=== PATIENT | male | born 2000 | race Caucasian/White ===

== ENCOUNTER 2018-11-27 21:43 | Emergency (ER) | payer BC, OTHER ==
[2018-11-27] MEDS ORDERED: NS 1,000 ML IV ONE ×3 (21:51→23:27)
[2018-11-27] MEDS ORDERED: PROMETHAZINE HCL 25 MG/ML INJ IVP ONE (21:51)
--- NOTE | 2018-11-27 22:04 | EDPHY ---
H & P Stated Complaint: THINKS HE ATE SOMETHING BAD, VOMITING ALL DAY Source: Patient Exam Limitations: No limitations - Personal History Current Tetanus/Diphtheria Vaccine: Yes Current Tetanus Diphtheria and Acellular Pertussis (TDAP): Yes - Medical/Surgical History Hx Asthma: No Hx Chronic Respiratory Disease: No Hx Diabetes: No Hx Cardiac Disease: No Hx Renal Disease: No Hx Cirrhosis: No Hx Alcoholism: No Hx HIV/AIDS: No Hx Splenectomy or Spleen Trauma: No Other PMH: DENIES - Social History Smoking Status: Never smoked Time Seen by Provider: 11/27/18 21:49 HPI/ROS: HPI: This is a 18-year-old male who presents with Chief Complaint: THINKS HE ATE SOMETHING BAD, VOMITING ALL DAY Location: GI Quality: Nausea, vomiting Duration: Since 8:00 a.m. Approximately 14 hr Signs and Symptoms: no fever, + nausea, + vomiting, no hematemesis, no blood in stool, no abdominal bloating, no diarrhea, no back pain, no urinary symptoms, no testicular/groin pain, no indigestion, no chest pain, no shortness of breath Timing: Acute, intermittent episodes Severity: Moderate Context: Patient is student at [employer] presents with sudden onset this morning around 8:00 a.m. Of nausea and vomiting approximately 10-15 times today. The last time he vomited was 20 min prior to arrival to the emergency room. Patient reports that he felt fine yesterday. Ate chicken wings from the [employer] around midnight. He was only person in his group that ate the wings. He believes that these made him sick. Denies any hematemesis, blood in stool, abdominal bloating, diarrhea, fevers. He reports that he was able to eat soup today. Denies any actual abdominal pain. He did smoke marijuana yesterday and today. He reports that he has never had nausea and vomiting from smoking marijuana in the past. Reports that he does not smoke marijuana every day. Modifying Factors: Sipping on liquids and ate soup Comment: ROS: A comprehensive 10 system review of systems is otherwise negative aside from elements mentioned in the history of present illness. MEDICAL/SURGICAL/SOCIAL HISTORY: Medical history: Generally healthy. Does not take any regular medications. Surgical history: Denies Social history: Alcohol, marijuana, tobacco use. Family history noncontributory. CONSTITUTIONAL: Extremely well-appearing adult white male, awake and alert, no obvious distress HEENT: Atraumatic and normocephalic, PERRL, EOMI. Nares patent; no rhinorrhea; no nasal mucosal edema. Tympanic membranes clear. Oropharynx clear, no exudate and moist pink mucosa. Airway patent. No lymphadenopathy. No meningismus. Cardiovascular: Normal S1/S2, regular rate, regular rhythm, without murmur rub or gallop. PULMONARY/CHEST: Symmetrical and nontender. Clear to auscultation bilaterally. Good air movement. No accessory muscle usage. ABDOMEN: Soft, nondistended, nontender, no rebound, no guarding, no peritoneal signs, no masses or organomegaly. No CVAT. EXTREMITIES: 2/2 pulses, strength 5/5, no deformities, no clubbing, no cyanosis or edema. NEUROLOGICAL: no focal neuro deficits. GCS 15. SKIN: Warm and dry, no erythema. no rash. Good capillary refill. (Jenn Gonzalez) Constitutional: Initial Vital Signs Temperature (C) 36.9 C 11/27/18 21:45 Heart Rate 96 11/27/18 21:45 Respiratory Rate 18 11/27/18 21:45 Blood Pressure 141/70 H 11/27/18 21:45 O2 Sat (%) 96 11/27/18 21:45 O2 Delivery Mode Room Air Allergies/Adverse Reactions: No Known Allergies Allergy (Unverified 11/27/18 21:48) Home Medications: Medication Instructions Recorded Ondansetron Odt [Zofran Odt 4 mg 4 mg PO Q4 PRN #12 tab 11/27/18 (*)] Medical Decision Making ED Course/Re-evaluation: Vital signs reviewed and stable. No systemic signs. IV access and laboratory studies ordered Given 2 L normal saline and IV promethazine 12.5 mg Abdomen is soft and nontender and doubt surgical process or need for imaging. 2230: Labs reviewed. WBC 13 K with left shift. No signs of anemia/platelet dysfunction/PARMINDER/electrolyte imbalance/pancreatitis. AST and alk-phos mildly elevated. 2355: Reassessed patient who reports moderate relief of symptoms. Abdomen remains soft and nontender. Given a prescription for Zofran prepack to take home this evening. School excuse provided. This patient was seen under the supervision of my secondary supervising physician. I evaluated care for this patient independently. (Jenn Gonzalez) PHYSICIAN DOCUMENTATION: The patient was evaluated and managed by the Physician Product Development Consultant. My co- signature indicates that I have reviewed this chart and I agree with the findings and plan of care as documented. I am the secondary supervising physician. (Gail Fischer) Differential Diagnosis: Differential diagnosis includes but is not limited to gastroenteritis, food- borne illness, dehydration, electrolyte imbalance, cyclical vomiting syndrome, gastritis, peptic ulcer disease. (Jenn Gonzalez) - Data Points Laboratory Results: Laboratory Results 11/27/18 21:58 11/27/18 21:58 11/27/18 11/27/18 21:58 21:58 WBC 13.37 10^3/uL H 10^3/uL (3.80-9.50) RBC 5.96 10^6/uL 10^6/uL (4.40-6.38) Hgb 17.4 g/dL g/dL (13.7-17.5) Hct 50.4 % % (40.0-51.0) MCV 84.6 fL fL (81.5-99.8) MCH 29.2 pg pg (27.9-34.1) MCHC 34.5 g/dL g/dL (32.4-36.7) RDW 12.7 % % (11.5-15.2) Plt Count 344 10^3/uL 10^3/uL (150-400) MPV 10.5 fL fL (8.7-11.7) Neut % (Auto) 83.4 % H % (39.3-74.2) Lymph % (Auto) 7.3 % L % (15.0-45.0) [place] % (Auto) 8.1 % % (4.5-13.0) Eos % (Auto) 0.5 % L % (0.6-7.6) Baso % (Auto) 0.4 % % (0.3-1.7) Nucleat RBC Rel Count 0.0 % % (0.0-0.2) Absolute Neuts (auto) 11.15 10^3/uL H 10^3/uL (1.70-6.50) Absolute Lymphs (auto) 0.98 10^3/uL L 10^3/uL (1.00-3.00) Absolute Monos (auto) 1.08 10^3/uL H 10^3/uL (0.30-0.80) Absolute Eos (auto) 0.07 10^3/uL 10^3/uL (0.03-0.40) Absolute Basos (auto) 0.05 10^3/uL 10^3/uL (0.02-0.10) Absolute Nucleated RBC 0.00 10^3/uL 10^3/uL (0-0.01) Immature Gran % 0.3 % % (0.0-1.1) Immature Gran # 0.04 10^3/uL 10^3/uL (0.00-0.10) Sodium 141 mEq/L mEq/L (135-145) Potassium 3.8 mEq/L mEq/L (3.5-5.2) Chloride 103 mEq/L mEq/L (97-110) Carbon Dioxide 25 mEq/l mEq/l (22-31) Anion Gap 13 mEq/L mEq/L (6-14) BUN 20 mg/dL mg/dL (7-23) Creatinine 0.9 mg/dL mg/dL (0.7-1.3) Estimated GFR > 60 Glucose 113 mg/dL H mg/dL (70-100) Calcium 9.9 mg/dL mg/dL (8.5-10.4) Total Bilirubin 1.0 mg/dL mg/dL (0.1-1.4) Conjugated Bilirubin 0.4 mg/dL mg/dL (0.0-0.5) Unconjugated Bilirubin 0.6 mg/dL mg/dL (0.0-1.1) AST 102 IU/L H IU/L (17-59) ALT 37 IU/L IU/L (21-72) Alkaline Phosphatase 141 IU/L H IU/L (38-126) Total Protein 8.5 g/dL H g/dL (6.3-8.2) Albumin 5.0 g/dL g/dL (3.5-5.0) Lipase 76 IU/L IU/L (23-300) Medications Given: Discontinued Medications Sodium Chloride (Ns) 1,000 mls @ 0 mls/hr IV EDNOW ONE; Wide Open PRN Reason: Protocol Stop: 11/27/18 21:52 Last Admin: 11/27/18 22:05 Dose: 1,000 mls Sodium Chloride (Ns) 1,000 mls @ 0 mls/hr IV EDNOW ONE; Wide Open PRN Reason: Protocol Stop: 11/27/18 21:52 Last Admin: 11/27/18 22:06 Dose: 1,000 mls Sodium Chloride (Ns) 1,000 mls @ 0 mls/hr IV EDNOW ONE; Wide Open PRN Reason: Protocol Stop: 11/27/18 23:28 Last Admin: 11/27/18 23:31 Dose: 1,000 mls Ondansetron HCl (Zofran) 4 mg IVP EDNOW ONE Stop: 11/27/18 23:28 Last Admin: 11/27/18 23:31 Dose: 4 mg Ondansetron HCl (Zofran Odt 4 Mg Prepack#2) 1 btl TAKEHOME EDNOW ONE Stop: 11/27/18 23:58 Last Admin: 11/28/18 00:10 Dose: 1 btl Promethazine HCl (Phenergan) 12.5 mg IVP EDNOW ONE Stop: 11/27/18 21:52 Last Admin: 11/27/18 22:06 Dose: 12.5 mg Departure - Departure Disposition: Home, Routine, Self-Care Clinical Impression: Gastroenteritis Condition: Good Instructions: Gastroenteritis (ED) Additional Instructions: Consume a minimum of 8-10 glasses of water or electrolyte fluid replacement drinks that include Gatorade, Powerade, Pedialyte. Eat a bland diet for the next 48 hours and then slowly advance as tolerated. Take Zofran 1 tab every 4 hours as needed for nausea, vomiting. Return to the Emergency Room if symptoms do not resolve in the next 48-72 hours , you spike a fever > 102 F, or experience intractable abdominal pain/nausea/ vomiting. Referrals: DONA BREWER [Other] - 3-4 days, if not improved Stand Alone Forms: School Excuse Prescriptions: Ondansetron Odt [Zofran Odt 4 mg (*)] 4 mg PO Q4 PRN #12 tab PRN Reason: Nausea/Vomiting, Use 1st
[2018-11-27 22:07] LABS: PLATELET COUNT 344 10^3/uL (150-400)
[2018-11-27] MEDS ORDERED: ONDANSETRON 4 MG/2 ML VIAL IVP ONE (23:27)
[2018-11-27] MEDS ORDERED: ONDANSETRON 4MG PREPACK#2 BTL TAKEHOME ONE (23:57)
[2018-11-28 00:19] VITALS: BP 106/66
== END 2018-11-28 00:19 | disposition home or self-care (01) ==
DX: K52.9 Noninfective gastroenteritis and colitis, unspecified (principal); E86.9 Volume depletion, unspecified
CPT/HCPCS: 96374; J2405; J2550